=== PATIENT | female | born 1970 | race Caucasian/White ===

== ENCOUNTER → 2016-04-19 | Outpatient (CLI) | payer OTHER ==
[~2016-04-19] MED LIST: ALBUTEROL17 GM INH; CILOXAN5 ML OP; CIPRO PO; CLARITIN10 MG PO; CYMBALTA PO; CYMBALTA30 MG PO; DEPAKOTE PO; DEPAKOTE250 MG PO; FIORICET 50-321 EACH PO; FLONASE16 GM; KEPPRA500 M2 PO; KLONOPIN PO; LANTUS100 U/ML; LEXAPRO PO; LORTAB 7.5-5001 TAB PO; MEDROL4 MG/DOSE- PO; NEURONTIN600 MG PO; OXYCONTIN PO; PERCOCET7.5 PO; PREMARIN PO; PRO-AMATINE5 MG PO; PROAIR HFA8.5 GM; PYRIDIUM PO; ZANAFLEX PO; ZITHROMAX PO; ZITHROMAX1 G/PKT PO; [UNRECOGNIZED DRUG - REMARK]
--- NOTE | ~2016-04-19 | XA40 ---
[facility] A Service of [facility] & [facility] RADIOLOGY TEXT RESULTS PATIENT: DIONTE FAUST [facility] [birth year] UN[facility] #: [id number] AGE: [address]: Latesha Silverio SEX: F ORDER DR: [id number] [facility] [address] [place], [place] [address] [id number] O MR#: [id number] Acc #: [id number] NAME: DIONTE FAUST : 1970 SEX: F STUDY DATE/TIME: 04/19/2016 12:32 UNIT: [facility] ROOM: STUDY DESCRIPTION: XA Arthrogram Hip Lt Attending Physician: Latesha Silverio P.A.-C. Ordering Physician: Latesha Silverio P.A.-C. Primary Care Physician: Izaiah Navarrete M.D. MEDICAL IMAGING REPORT This report is preliminary unless electronic signature is present EXAM Left hip arthrogram INDICATION Left hip pain. PROCEDURE There risks, benefits, and alternatives to the procedure were explained to the patient, and signed, informed consent was obtained. She was placed prone on the angiographic table and was prepped and draped in the usual sterile fashion. A time-out was performed as per protocol. Skin and subcutaneous tissues were anesthetized with buffered lidocaine. A 22-gauge spinal needle was advanced into the joint space. Contrast was injected which confirmed location within the joint space. I did instill some additional contrast, some of which appeared to be a bursal. I did reposition the needle and did get more contrast into the joint space itself. 2 fluoroscopic images were obtained in both the adducted and abducted position. Patient was transferred to MRI. But apparently refused to wait to be put in the MRI scanner and left without having it done. Total fluoroscopy time was 0.7 minutes. A total of 2 fluoroscopic images were obtained. IMPRESSION Technically successful left hip arthrogram. Please note, the patient refused the MRI portion of the examination. Fluoroscopy was used during the procedure and permanent images were saved. Dictated by... Silvia Sánchez M.D. THIS IS AN ELECTRONICALLY VERIFIED REPORT [facility] A Service of [facility] & [facility] RADIOLOGY TEXT RESULTS PATIENT: DIONTE FAUST LOCATION: [facility] : [birth year] UNIT #: [id number] AGE: [address]: Latesha Silverio SEX: F ORDER DR: Silvia Sánchez M.D. at 04/23/2016 4:44 PM ROLDAN/nancy TD: 04/23/2016 11:44 JOB #: [id number] MEDICAL IMAGING REPORT COPY
== END | disposition home or self-care (01) ==
LOC: CIVR 12:17
DX: M25.552 Pain in left hip (principal); M25.652 Stiffness of left hip, not elsewhere classified; M41.9 Scoliosis, unspecified; Z92.241 Personal history of systemic steroid therapy
CPT/HCPCS: 73525; 77002; Q9967

== ENCOUNTER 2016-05-30 19:03 | Emergency (ER) | payer OTHER ==
--- NOTE | ~2016-05-30 | CR142 ---
[facility] A Service of [facility] & [facility] RADIOLOGY TEXT RESULTS PATIENT: DIONTE FAUST LOCATION: [facility] : 68 UNIT #: [id number] AGE: [address]: Kellee Nicole APRN SEX: F ORDER DR: [id number] [facility] [address] [place], [place] [address] [id number] MR#: [id number] Acc #: [id number] NAME: DIONTE FAUST : 1970 SEX: F STUDY DATE/TIME: 05/30/2016 18:55 UNIT: [facility] ROOM: STUDY DESCRIPTION: CR Hand Min 3 Views Rt Attending Physician: Kellee Nicole A.P.R.N. Ordering Physician: Jigar Crystal M.D. Primary Care Physician: Izaiah Navarrete M.D. MEDICAL IMAGING REPORT This report is preliminary unless electronic signature is present EXAM Right hand 3 views HISTORY Hand pain. Rock fell on hand today. FINDINGS AP, lateral, and oblique projections of the hand show good mineralization with normal carpal, metacarpal, and phalangeal anatomy without indication of fracture, dislocation, or soft tissue radiopaque foreign body. IMPRESSION Normal hand. Dictated by... Davis Almeida M.D. THIS IS AN ELECTRONICALLY VERIFIED REPORT Davis Almeida M.D. at 05/31/2016 6:37 PM Imtiaz TD: 05/30/2016 22:59 JOB #: [id number] MEDICAL IMAGING REPORT Page 1 of 1 COPY
== END 2016-05-30 19:40 | disposition home or self-care (01) ==
LOC: CFTX 19:03
DX: S60.221A Contusion of right hand, initial encounter (principal); E11.9 Type 2 diabetes mellitus without complications; I10 Essential (primary) hypertension; J45.909 Unspecified asthma, uncomplicated; F41.9 Anxiety disorder, unspecified; F17.200 Nicotine dependence, unspecified, uncomplicated; W20.8XXA Other cause of strike by thrown, projected or falling object, initial encounter; Y92.009 Unspecified place in unspecified non-institutional (private) residence as the place of occurrence of the external cause
CPT/HCPCS: 29125; 73130; 99283

== ENCOUNTER → 2016-10-28 | Outpatient (CLI) | payer OTHER ==
[2016-10-28 15:54] LABS: BASOPHIL# 0.1 X10e3 (0-0.3); BASOPHIL% 0.7 % (0-2.5); EOSINOPHIL% 0.3 % (0.0-7.0); HEMATOCRIT 41.5 % (35.0-45.0); HEMOGLOBIN 13.5 gm/dL (12.0-16.0); LYMPHOCYTE# 4.3 X10e3 (1.0-3.5); LYMPHOCYTE% 51.9 % (17.0-45.0); MEAN CELL VOLUME 93.2 FL (83-96); MEAN CORPUSCULAR HEMOGLOBIN 30.4 PG (28-34); MEAN CORPUSCULAR HGB CONC 32.6 g/dL (30-36); MEAN PLATELET VOLUME 7.9 FL (6.5-11.5); MONOCYTE# 0.6 X10e3 (0-1.0); MONOCYTE% 6.7 % (3.0-12.0); NEUTROPHIL# 3.4 X10e3 (1.5-7.1); NEUTROPHIL% 40.4 % (40-75); PLATELET COUNT 456 X10e3 (140-420); RED BLOOD COUNT 4.45 X10e (3.90-5.30); RED CELL DISTRIBUTION WIDTH 15.3 % (11.0-15.5); WHITE BLOOD COUNT 8.4 X10e3 (4.0-10.5)
[2016-10-28 15:55] LABS: DIFF IND YES; URINE APPEARANCE CLEAR; URINE BILIRUBIN NEG (NEG); URINE BLOOD NEG (NEG); URINE COLOR DK YELLOW; URINE GLUCOSE NEG (NEG); URINE KETONE TRACE (NEG); URINE LEUKOCYTE ESTERASE 1+ (NEG); URINE NITRATE NEG (NEG); URINE PH 6.5 (5-8); URINE PROTEIN NEG (NEG); URINE SPECIFIC GRAVITY 1.023 (1.003-1.035)
[2016-10-28 16:01] LABS: URBCS1 AUWI 0-2 /[HPF] (0-2); URINE BACTERIA AUWI 1+ (NEGATIVE); URINE SOURCE CLEAN CATCH; URINE SQUAMOUS EPITHELIAL CELL OCC /[HPF]
[2016-10-28 16:15] LABS: ALBUMIN SERUM 4.4 g/dL (3.5-5.0); BILIRUBIN,TOTAL 0.3 mg/dL (0.2-2.0); BUN/CREATININE RATIO 14.28; CALCIUM SERUM 9.2 mg/dL (8.4-10.2); CREATININE SERUM 0.7 mg/dL (0.6-1.4); GLOM FILT RATE Estimated 103.2 mL/min (>60); POTASSIUM 4.1 mmol/L (3.5-5.1); PROTEIN TOTAL SERUM 8.1 g/dL (6.0-8.3)
[2016-10-28 16:30] LABS: PLATELET ESTIMATE INCREASED (NORMAL); STOMATOCYTE PRESENT
[2016-10-30 15:51] LABS: HA AB IGM (HEPPAN) Nonreactive (()); HB CORE AB IGM (HEPPAN) Nonreactive (Nonreactive); HB S AG (HEPPAN) Nonreactive (Nonreactive); HEP C AB (HEPPAN) Nonreactive (Nonreactive); HEP C AB SIGNAL TO CUTOFF 0.15 ratio (<1.00)
== END | disposition home or self-care (01) ==
LOC: CLAB 14:44
PROVIDERS: Anesthesiology
DX: F11.20 Opioid dependence, uncomplicated (principal)
CPT/HCPCS: 36415; 80053; 80074; 81003; 84703; 85025; 86592; 87806